=== PATIENT | female | born 1990 | race Caucasian/White ===

== ENCOUNTER 2025-02-04 15:27 | Emergency (ER) | payer OTHER ==
[~2025-02-04] VITALS: Ht 162.6 cm; Wt 68.2 kg
[2025-02-04] MEDS ORDERED: ONDA-104 PO (15:54)
[2025-02-04] MEDS ORDERED: OMEP-148 PO (15:54)
[2025-02-04] MEDS ORDERED: MULT-660 PO (15:54)
[2025-02-04] MEDS ORDERED: BISM-171 PO (15:54)
[2025-02-04 16:13] LABS: APPEARANCE,URINE CLEAR (CLEAR); GLUCOSE, URINE (UA) NEGATIVE (NEGATIVE); LEUKOCYTE ESTERASE ,URINE NEGATIVE (NEGATIVE); NITRATE,URINE NEGATIVE (NEGATIVE); OCCULT BLOOD,URINE NEGATIVE (NEGATIVE); SPECIFIC GRAVITIY, URINE 1.025 (1.003-1.030)
[2025-02-04 16:19] LABS: PLATELET COUNT (AUTO) 490 K/uL (150-450); RED BLOOD CELL COUNT(AUTO) 4.89 MIL/uL (4.00-5.20); RED CELL DISTRIBUTION WIDTH 12.6 % (11.5-14.5); WHITE BLOOD COUNT (AUTO) 10.3 K/uL (4.5-11.0)
[2025-02-04 16:22] LABS: CALCIUM, TOTAL 8.8 mg/dL (8.8-10.5); CREATININE 0.95 mg/dL (0.60-1.30); GLOMERULAR FILTR. RATE CALC > 60 mL/min (>60); GLUCOSE,RANDOM 96 mg/dL (70-110); SODIUM SERUM 139 mmol/L (136-145); UREA NITROGEN, BLOOD 19 mg/dL (7-18)
[2025-02-04 16:31] LABS: TROPONIN I-HIGH SENSITIVITY Less Than 4 ng/L (<51)
[2025-02-04 16:45] LABS: ASPARTATE AMINOTRANSFERASE 16.0 U/L (15-37); TOTAL PROTEIN, SERUM 8.0 g/dL (6.4-8.2)
[2025-02-04] MEDS ORDERED: FAMOTIDINE 20 MG/2 ML VIAL IVP ONE (18:15)
[2025-02-04] MEDS: FAMOTIDINE 20 MG TABLET PO ONE (18:20)
[2025-02-04] MEDS: PB/HYOSCY/ATR/SCOP/LIDO/MAALOX 55 ML BOTTLE PO ONE (18:21)
[2025-02-04 20:45] VITALS: BP 118/73; PULSE 78; RESP 18; TEMP 98.1; O2SAT 100
== END 2025-02-05 00:52 | disposition home or self-care (01) ==
LOC: EMS 15:27
DX: K29.70 Gastritis, unspecified, without bleeding (principal); R10.13 Epigastric pain; R19.7 Diarrhea, unspecified; K59.00 Constipation, unspecified; I51.9 Heart disease, unspecified; Z79.899 Other long term (current) drug therapy; F41.9 Anxiety disorder, unspecified
CPT/HCPCS: 71045; 74018; 76705; 80048; 80076; 81003; 84484; 84703; 85025; 93005; 99285; 36415-L1; 36415-TC